=== PATIENT | female | born 1995 | race Asian ===

== ENCOUNTER 2025-03-16 19:01 | Emergency (ER) | payer OTHER, SELFPAY ==
[2025-03-16 19:05] VITALS: BP 105/63
--- NOTE | 2025-03-16 20:06 | EDRN ---
Spoke with pts father Dawit @ . Pt and father are agreeable to be discharged from ER and pt has expressed wishes to father for family therapy session where they can make time to communicate with a technical intern.
[2025-03-16 20:08] VITALS: BMI 23.7
--- NOTE | 2025-03-16 20:17 | ED.GENMED ---
History of Present Illness
General
Chief Complaint: Crisis Evaluation
Time Seen by Provider: 03/16/25 19:21
History of Present Illness
History of Present Illness:
21-year-old female with history of psychosis presenting to the emergency department with increased stress. Patient reports that she lives with her parents and has been having issues with her mother primarily. She expresses frustrations because her
parents will not let her do anything on her own. She notes that she has medicated for hallucinations and paranoia which ultimately has been stable. Denies any increased delusions or paranoia. Denies medical complaint such as chest pain,
difficulty breathing, abdominal pain, fever. She denies suicidal or homicidal ideations. She reports compliance with her medications. Denies difficulty medical complaints
Phy Exam
Physical Exam
Physical Exam:
General: Well-appearing, no clinical signs of dehydration, nontoxic and in no acute distress
HEENT: protecting airway
Neck: appears supple
CV: Normal heart rate
Resp: No accessory muscle use, no increased work of breathing
Abd: No distention
Extremities: No deformities, no swelling
Neuro: alert, no focal neurologic deficit
: deferred
Rectal: deferred
Psych: Normal affect
Skin: Intact
Course
Orders/Labs/Results
Orders:
Orders
03/16/25 19:16
Crisis Consult Urgent
Reason for Consult: CRISIS
Vital Signs
Initial and Last Documented VS:
Initial Vital Signs
Temp Pulse Resp BP Pulse Ox
98.0 F 75 18 105/63 98
03/16/25 19:05 03/16/25 19:05 03/16/25 19:05 03/16/25 19:05 03/16/25 19:05
Last Documented Vital Signs
Temp Pulse Resp BP Pulse Ox
98.0 F 75 18 105/63 98
03/16/25 19:05 03/16/25 19:05 03/16/25 19:05 03/16/25 19:05 03/16/25 19:05
MDM/Problems Addressed
MDM/Problems Addressed:
29-year-old female with history of psychosis presenting for increased stress. Vital signs on arrival are normal
On exam patient is resting comfortably, no acute distress or discomfort. Patient does not appear to be acutely psychotic. She is answering questions appropriately, denies suicidal or homicidal ideations.. Does note frustrations at home and
increase stress, however close delusions or paranoia. At this time no indication for advanced medical workup. Will consult with crisis.
20:20 - Crisis to bedside, note that patient has outpatient therapy set up at [facility]. Crisis encouraged a family therapy session. Patient's father will come to pick her up. Otherwise feel stable for discharge.
*Pulse Oximetry
SaO2: 98
Oxygen Mode of Delivery: Room air
Patient hypoxic: no
*Critical Care Note
Total Time (30-74mins, 75-104mins- exclusive of procedures): Not Applicable
ED Attending Note
-
Portions of this chart may have been created with voice recognition software.� Occasional wrong word or��sound alike� substitutions may have occurred due to the inherent limitations of voice recognition software.
Discharge Plan
Interventions
Interventions:
*Risk Screen - Suicide Last Done: 03/16/25 19:58
*General Assessment Last Done: 03/16/25 19:05
*Neglect/Abuse Screening Last Done: 03/16/25 19:55
*ED- Fall Risk Assessment Last Done: 03/16/25 19:55
ED-Psychological Assessment Last Done: 03/16/25 19:55
Discharge Date and Time
Print Language: MEXICAN
[2025-03-16 20:42] VITALS: BP 118/78
== END 2025-03-16 20:45 | disposition home or self-care (01) ==
LOC: EMR 19:01
PROVIDERS: EMERGENCY PHYSICIAN Student in an Organized Health Care Education/Training Program; FAMILY PHYSICIAN Family Medicine
DX: F43.0 Acute stress reaction (principal); Z63.8 Other specified problems related to primary support group
CPT/HCPCS: 99283